=== PATIENT | female | born 1995 | race Caucasian/White ===

== ENCOUNTER 2018-05-03 10:17 | Outpatient (REF) | payer OTHER, SELFPAY ==
[2018-05-04 16:11] LABS: Chlamydia Result Negative; GC Result Negative; Specimen Description URINE
== END 2018-05-03 10:37 ==
LOC: LBN 10:17
PROVIDERS: PCP Registered Nurse; Visit Provider Nurse Practitioner Family
DX: Z11.3 Encounter for screening for infections with a predominantly sexual mode of transmission (principal)
CPT/HCPCS: 87491; 87591

== ENCOUNTER 2019-03-14 17:22 | Outpatient (REF) | payer OTHER, SELFPAY ==
--- NOTE | 2019-03-14 14:35 | PAPFT_PTH ---
PATIENT: BRYON CH LOC: [facility] U#:[id number] AGE/SX: 23/F ROOM: RE03/14/[address]: SABI Quinonez : 1995 BED: DIS: 03/14/2019 SPEC #: [id number] RECD: 03/14/19 18:01 STATUS: BENJAMIN MONTOYA #: [id number] GIOVANY: 03/14/19 14:[address]: Ligia Isabel DEPT: [facility] Cytology RECD BY: Meseret Schwab ENTERED: 03/14/19 18:02 SP TYPE: PAPFT LATESHA DR: Brittney Mayo NP Tissues: 1 - CX/ENDOCX FOR PAP SMEARS Procedures: PAP THIN PREP/[facility] Screening Comments: [id number]
[2019-03-15 15:03] LABS: GC Result Negative; Specimen Description CERVIX
[2019-03-15 15:19] LABS: Chlamydia Result Positive
== END 2019-03-14 17:42 ==
LOC: LBN 17:22
PROVIDERS: PCP Registered Nurse; Visit Provider Nurse Practitioner Family
DX: Z11.3 Encounter for screening for infections with a predominantly sexual mode of transmission (principal); Z12.4 Encounter for screening for malignant neoplasm of cervix; Z11.51 Encounter for screening for human papillomavirus (HPV)
CPT/HCPCS: 87491; 87591; 88142

== ENCOUNTER 2019-05-21 15:51 | Outpatient (REF) | payer OTHER, SELFPAY ==
[2019-05-23 14:19] LABS: Chlamydia Result Negative; GC Result Negative; Specimen Description CERVIX
== END 2019-05-21 16:11 ==
LOC: LBN 15:51
PROVIDERS: PCP Registered Nurse; Visit Provider Nurse Practitioner Family
DX: Z11.3 Encounter for screening for infections with a predominantly sexual mode of transmission (principal)
CPT/HCPCS: 87491; 87591

== ENCOUNTER 2019-09-03 11:44 | Outpatient (REF) | payer OTHER, SELFPAY ==
[2019-09-04 13:28] LABS: HSV 1 DNA Result Negative (Negative); HSV 2 DNA Result Negative (Negative)
[2019-09-04 15:19] LABS: Chlamydia Result Negative (Negative); GC Result Negative (Negative)
== END 2019-09-03 12:04 ==
LOC: LBN 11:44
PROVIDERS: PCP Nurse Practitioner Pediatrics; Visit Provider Nurse Practitioner Family
DX: N90.9 Noninflammatory disorder of vulva and perineum, unspecified (principal); Z11.3 Encounter for screening for infections with a predominantly sexual mode of transmission
CPT/HCPCS: 87491; 87529; 87591

== ENCOUNTER 2019-12-02 01:49 | Outpatient (CLI) | payer OTHER, SELFPAY ==
[2019-12-02 15:53] LABS: Kit/Specimen SENT
[2019-12-02 16:03] LABS: Abs Immature Grans 0.08 k/cumm (0.0-0.09); Absolute Basophil Count 0.01 k/cumm (0.0-0.2); Absolute Monocyte Count 0.47 k/cumm (0.11-0.7); Basophils % 0.1; Eosinophils % 0.3; HCT 39.9 % (36.0-46.0); Immature Grans % 0.5 %; Lymphocytes % 10.4; Mean Corp. HGB Concentration 35.1 g/dL (32.0-36.0); Mean Corpuscular Hemoglobin 29.7 pg (27.0-33.0); Mean Corpuscular Volume 84.7 fL (80-95); Mean Platelet Volume 11.1 fL (8.0-11.0); Monocytes % 3.2; Neutrophils % 85.5; Platelet Count 264 x1000/uL (130-400); RBC 4.71 m/cumm (4.00-5.20); RBC Distribution Width 12.5 % (11.7-14.6); White Blood Cell Count 14.75 k/cumm (4.4-10.8)
[2019-12-02 16:08] LABS: Absolute Eosinophil Count 0.04 k/cumm (0.0-0.7); Absolute Lymphocyte Count 1.53 k/cumm (1.2-3.4); Absolute Neutrophil Count 12.61 k/cumm (1.2-6.7)
[2019-12-02 16:09] LABS: Glucose,1 Hr (Glucola) 148 mg/dL (80-140)
[2019-12-03 10:36] LABS: Varicella IgG Antibody Negative (See Note)
[2019-12-03 10:45] LABS: Rubella IgG Ab (UVM) Positive (See Note)
[2019-12-03 13:18] LABS: Hepatitis B Surface Ag Negative (Negative)
[2019-12-03 14:13] LABS: HIV-1/2 Ag & Ab Screen Negative (Negative); Hepatitis C Ab w Rflx HCV PCR Negative (Negative)
[2019-12-03 16:08] LABS: Syphilis Total Ab w/Reflex Nonreactive (Nonreactive)
[2019-12-10 00:53] LABS: Specimen WB Whole Blood
[2019-12-12 07:17] LABS: Result Summary NEGATIVE; Specimen WB Whole Blood
== END 2019-12-02 02:09 ==
PROVIDERS: Advanced Practice Midwife; PCP Nurse Practitioner Pediatrics; Visit Provider Advanced Practice Midwife
DX: Z34.01 Encounter for supervision of normal first pregnancy, first trimester (principal); Z11.59 Encounter for screening for other viral diseases; Z11.4 Encounter for screening for human immunodeficiency virus [HIV]; Z01.84 Encounter for antibody response examination; Z36.89 Encounter for other specified antenatal screening
CPT/HCPCS: 36415; 81329; 82950; 86787; 86803; 86850; 86900; 86901; 87340; 87389; 81220; 84443; 85025; 86762; 86780

== ENCOUNTER 2019-12-02 15:54 | Outpatient (REF) | payer OTHER, SELFPAY ==
[2019-12-02 17:55] LABS: *AMPHETAMINES SCREEN URINE Negative (Negative); *BARBITURATES SCREEN URINE Negative (Negative); *BENZODIAZEPINES SCREEN URINE Negative (Negative); Cannabinoids THC POSITIVE (Negative); Cocaine Screen,Urine Negative (Negative); METHADONE URINE SCREEN Negative (Negative); OPIATES URINE SCREEN Negative (Negative)
[2019-12-02 17:59] LABS: Tricyclic Antidepressants Negative (Negative)
[2019-12-03 13:03] LABS: Chlamydia Result Negative (Negative); GC Result Negative (Negative)
== END 2019-12-02 16:14 ==
LOC: LBN 15:54
PROVIDERS: Advanced Practice Midwife; PCP Nurse Practitioner Pediatrics; Visit Provider Advanced Practice Midwife
DX: Z34.91 Encounter for supervision of normal pregnancy, unspecified, first trimester (principal); N76.0 Acute vaginitis; Z11.3 Encounter for screening for infections with a predominantly sexual mode of transmission
CPT/HCPCS: 80307; 87491; 87591; 87480; 87510; 87660

== ENCOUNTER 2019-12-16 02:41 | Outpatient (CLI) | payer OTHER, SELFPAY ==
[2019-12-16 12:52] LABS: Glucose 1 Hour 139 mg/dL
[2019-12-16 14:43] LABS: Glucose 3 Hour 131 mg/dL
== END 2019-12-16 03:01 ==
PROVIDERS: PCP Nurse Practitioner Pediatrics; Visit Provider Advanced Practice Midwife
DX: Z34.91 Encounter for supervision of normal pregnancy, unspecified, first trimester (principal)
CPT/HCPCS: 36415; 82951

== ENCOUNTER 2020-01-17 02:21 | Outpatient (CLI) | payer OTHER, SELFPAY ==
--- NOTE | 2020-01-17 07:15 | DI.US_ITS ---
EXAM: US OB 2-3 TRIMESTER W MOD CLINICAL HISTORY: routine pnc, survey, Z34.90. TECHNIQUE: Transabdominal obstetrical ultrasound performed. COMPARISON: No exams were available for comparison FINDINGS: There is a single living intrauterine gestation. The fetus is in the breech position. Placenta is posterior and low lying. The placental tip is 1.6 cm from the internal cervical os. Estimated gestational age is 19 weeks 4 days. The four-chamber heart, left and right ventricular outflow tracts and posterior fossa were not well s een. The patient is scheduled to return on 01/24/2020. The anatomic evaluation was otherwise unremarkable. Amniotic fluid appears within normal limits. IMPRESSION: 1. Single living intrauterine gestation. 2. Posterior and low lying placenta. No evidence of previa. 3. Cardiac structures and posterior fossa were not well seen on this examination. The patient is raphael eduled to return on 01/24/2020 for re-evaluation. DATA REPOSITORY:
== END 2020-01-17 02:41 ==
PROVIDERS: PCP Nurse Practitioner Pediatrics; Visit Provider Advanced Practice Midwife
DX: Z34.92 Encounter for supervision of normal pregnancy, unspecified, second trimester (principal); Z3A.19 19 weeks gestation of pregnancy
CPT/HCPCS: 76805

== ENCOUNTER 2020-01-17 10:55 | Outpatient (CLI) | payer OTHER, SELFPAY ==
[2020-01-21 12:27] LABS: AFP 45.9 ng/mL; GA used in risk estimate Scan estimate; IVF Pregnancy No; Initial or repeat testing Initial testing; Insulin dependent diabetes No; Maternal Weight 215 lbs; Number of Fetuses 1; Physician Phone Number 802-748-7300; Prev Pregnancy w/NTD No; RECOMMENDED FOLLOW UP None.; Results Summary Normal risk
== END 2020-01-17 11:15 ==
PROVIDERS: PCP Nurse Practitioner Pediatrics; Visit Provider Advanced Practice Midwife
DX: O26.92 Pregnancy related conditions, unspecified, second trimester (principal); Z36.89 Encounter for other specified antenatal screening
CPT/HCPCS: 82105

== ENCOUNTER 2020-01-24 02:22 | Outpatient (CLI) | payer OTHER, SELFPAY ==
--- NOTE | 2020-01-24 | DI.US_ITS ---
EXAM: US OB F/U FACIAL/LVOT/RVOT CLINICAL HISTORY: F/U01/16,CARDIAC STRUCTURES AND POSTERIOR FOSSA. COMPARISON: US US OB 2-3 TRIMESTER W MOD from 01/17/2020 TECHNIQUE: Transabdominal obstetrical ultrasound performed. FINDINGS: Sonographic images demonstrate a single intrauterine gestation in breech position. The placenta is po sterior and again noted to be low lying. The tip is measured at 1.2 cm from the os. heart rate motion is Dopplered at: 149 bpm. Four-chamber view: Unremarkable. There is a question of a small pericardial effusion versus artifact. LVOT and RVOT are unremarkable. Posterior fossa appears normal. Cisterna magna measures 3.6 millimeters. The cerebellum measures 2.1 cm. IMPRESSION: No change in low-lying placenta. Question of a small pericardial effusion versus artifact. Posterior fossa appears normal. DATA REPOSITORY:
== END 2020-01-24 02:42 ==
PROVIDERS: PCP Nurse Practitioner Pediatrics; Visit Provider Advanced Practice Midwife
DX: O44.42 Low lying placenta NOS or without hemorrhage, second trimester (principal); Z3A.19 19 weeks gestation of pregnancy
CPT/HCPCS: 76815